=== PATIENT | male | born 1965 | race Caucasian/White ===

== ENCOUNTER → 2018-02-23 15:21 | Outpatient (CLI) | payer MEDICAID | END | disposition home or self-care (01) | LOC: D.MRI 15:21 | DX: M54.5 Low back pain (principal) ==

== ENCOUNTER 2019-01-16 16:02 | Emergency (ER) | payer MEDICAID ==
[2019-01-16 16:07] VITALS: BMI 20.4
[2019-01-16] MEDS ORDERED: NORVASC10 MG PO (16:09)
[2019-01-16 16:57] LABS: APTT 27.9 SECONDS (22.8-39.4); INR 1.07 (0.85-1.17); PROTIME 13.4 SECONDS (11.6-15.0)
[2019-01-16 17:00] LABS: BASOPHILS 0 % (0-2); EOSINOPHILS 0 % (0-7); HEMATOCRIT 33.2 % (42.0-54.0); HEMOGLOBIN 12.3 g/dL (13.5-17.5); IMMATURE GRANULOCYTES 0.4 % (0-5); MCH 35.5 pg (26.0-34.0); MEAN PLATELET VOLUME 8.9 fL (7.4-10.4); MONOCYTES 11.6 % (2-11); PLATELET COUNT 163 10x3/uL (130-400); RBC 3.46 10x6/uL (4.20-6.10); RDW 12.3 % (11.5-14.5); WBC 5.1 10x3/uL (4.8-10.8)
[2019-01-16 17:07] LABS: ALBUMIN 4.3 g/dL (3.4-5.0); ALKALINE PHOSPHATASE 63 U/L (46-116); ALT (SGPT) 41 U/L (10-68); BILIRUBIN - TOTAL 0.48 mg/dL (0.2-1.3); CALC OSMOLALITY 253 mosm/kg (275-300); CALCIUM 9.1 mg/dL (8.5-10.1); CARBON DIOXIDE 24.7 mmol/L (21.0-32.0); CHLORIDE - SERUM 89 mmol/L (98-107); CREATININE - SERUM 0.8 mg/dL (0.6-1.3); GLUCOSE 89 mg/dL (74-106); POTASSIUM - SERUM 4.8 mmol/L (3.5-5.1); PROTEIN - SERUM 8.1 g/dL (6.4-8.2); SODIUM 127 mmol/L (136-145); UREA NITROGEN 12 mg/dL (7-18); eGFR NON AFRICAN AMERICAN > 90 mL/min (90-120)
[2019-01-16 17:17] LABS: CKMB 4.9 U/L (0.0-3.6); CREATINE KINASE 173 UL (21-232); MAGNESIUM - SERUM 1.8 mg/dL (1.8-2.4); THYROID STIMULATING HORMONE 1.59 uIU/mL (0.36-3.74)
[2019-01-16 17:19] LABS: TROPONIN-I < 0.017 ng/mL (0.000-0.060)
[2019-01-16 18:07] VITALS: BP 150/84
== END 2019-01-16 18:08 | disposition home or self-care (01) ==
LOC: D.ER 16:02
PROVIDERS: Family Medicine
DX: E87.1 Hypo-osmolality and hyponatremia (principal)

== ENCOUNTER 2019-07-09 16:05 | Observation (INO) | payer MEDICAID ==
[~2019-07-09] VITALS: Ht 182.9 cm; Wt 72.7 kg
--- NOTE | ~2019-07-09 | HP ---
PATIENT: LATONIA ZENG MEDICAL RECORD: [id number] ACCOUNT: [id number] LOCATION:[facility] : 61 ADMISSION DATE: 07/09/19 PCP: MIA BLANCO MD HISTORY AND PHYSICAL EXAMINATION DIAGNOSES: 1. Unstable angina. 2. Family history of coronary artery disease. 3. Hypertension. 4. Hyperlipidemia. HISTORY OF PRESENT ILLNESS: This is a gentleman with no history of ischemic heart disease. He has been having chest discomfort for greater than 1 month in an escalating fashion. He now has progressed to episodes of rest pain as well associated with diaphoresis and shortness of breath. It has been in a progressive fashion. He was set up to see a cdl b driver at [facility] by his primary care physician; however, has not seen them yet. He does have a history of hypertension. He is not sure of his medications. He knows he is on a beta joy and he thinks Norvasc, despite the good blood pressure control and good heart rate control, the chest pain has deescalated. He does have a history of tobacco use for greater than 25 years as well and a family history of coronary artery disease. His angina is atypical angina, dull aching sensation. It radiates to his epigastric area as well as to his left arm. With these episodes recently, he broke out with diaphoresis along with the episodes and his overall shortness of breath has worsened. PHYSICAL EXAMINATION: CONSTITUTIONAL/GENERAL APPEARANCE: Well nourished, well developed, appears stated age. EYES: Lids and conjunctivae noninjected. No discharge. No pallor. ENT: Lips within normal limit. No cyanosis. No pallor. NECK: Carotid arteries, bilateral normal upstroke. No bruits. No thrills. No jugular venous pressure or distention. CERVICAL LYMPH NODES: Nontender. Nonenlarged. THYROID: Not enlarged. No nodules. CARDIOVASCULAR: Precordial exam, nondisplaced. No heaves or pericardial thrills. Rate and rhythm, regular. Heart sounds, normal S1, normal S2. No S3, no gallop, no rub. Systolic murmur, not heard. Diastolic murmur, not heard. RESPIRATORY: Respiratory effort, unlabored. Normal curvature. No thoracic deformity. No chest wall tenderness. Percussion, resonant. Auscultation, clear. No wheezes, no rales, no rhonchi. ABDOMEN: Soft, nondistended, nontender. No abdominal pain, no vomiting and normal appetite. MUSCULOSKELETAL: No joint tenderness, normal gait, normal tone. SKIN: Warm and dry. OVERALL IMPRESSION: Chest pain compatible with angina. He has been taking aspirin, has had a progression of the pain. We will load him with Plavix. He has taken multiple sublingual nitro and he still has pain in the Emergency Room. We will use morphine as well. Most likely has hemodynamically significant coronary artery disease. We will proceed with coronary angiography. Further care depends upon findings of angiography. TRANSINT:[id number] Voice Confirmation ID: [id number] DOCUMENT ID: [id number] HISTORY AND PHYSICAL [id number] LATONIA ZENG JEFFREY MD CC: [id number] DICTATION DATE: 07/09/19 172 TITLE ATTORNEY: 07/09/19 1737 [facility] [address] [id number]
--- NOTE | ~2019-07-09 | DS ---
PATIENT:LATONIA FAIR :61 MEDICAL RECORD: [id number] DISCHARGE SUMMARY ADMISSION DATE: 07/09/19 DISCHARGE DATE: 07/10/19 DIAGNOSES: 1. GERD. 2. Anemia. 3. Angina. 4. Coronary artery disease. 5. Hypertension. 6. Hyperlipidemia. HOSPITAL COURSE: Mr. Fair presents with anginal symptomatology; however, cardiac catheterization revealed total occlusion of the RCA with well-developed collaterals. No other significant disease. He is quite anemic and he has a history of GERD, most likely his chest pain was secondary to uncontrolled GERD. He was started on omeprazole. We will continue this with [id number]-mha-aozgntt omeprazole. Follow up with his primary care physician. TRANSINT:[id number] Voice Confirmation ID: [id number] DOCUMENT ID: [id number] YAIR DIMAS MD CC: [id number] DICTATION DATE: 07/10/19 1141 HONEY LIQUEFIER: 07/10/19 2359 DIS IN 07/10/19 [address] [place] [address]
--- NOTE | ~2019-07-09 | OP ---
PATIENT NAME: LATONIA ZENG MEDICAL RECORD: [id number] :61 LOCATION:D.M2 D.0 ADMISSION DATE:07/09/19 SURGEON: YAIR DIMAS MD DATE OF OPERATION: 07/10/2019 PROCEDURES: 1. Left heart catheterization. 2. Selective coronary angiography. 3. Left ventriculogram. INDICATION: Chest pain compatible with angina and coronary artery disease. PROCEDURE IN DETAIL: After informed consent was obtained and after a detailed description of the risks, benefits as well as alternative therapies, the patient elected to proceed with angiogram and heart catheterization. The right radial area was prepped and draped in normal sterile fashion. Right radial artery was cannulated via modified Seldinger technique with placement of 5-Nigerien sheath. All catheters exchanged through this sheath. FINDINGS: Left ventriculogram was performed in standard 30-degree HARP view, reveals good cardiac wall motion, ejection fraction 50% to 55%. SELECTIVE CORONARY ANGIOGRAPHY: 1. Left main is with no significant angiographic disease. 2. Left anterior descending has mild irregularities, but no flow-limiting stenosis. 3. The left circumflex has mild irregularities, but no flow-limiting stenosis. 4. Right coronary artery is totally occluded. This is a chronic total occlusion. Distal right coronary artery fills via well-developed [id number] collaterals. OVERALL IMPRESSION: Total occlusion of the RCA with well-developed collaterals, wide patency of the LAD and circumflex. Continue medical management of the coronary artery disease and cardiac risk factors. TRANSINT:[id number] Voice Confirmation ID: [id number] DOCUMENT ID: [id number] YAIR DIMAS MD CC: [id number] DICTATION DATE: 07/10/19 1140 CARTON LETTERING MACHINE OPERATOR: 07/10/19 1305 ADM IN [facility] [address] [place] [address]
--- NOTE | ~2019-07-09 | HEMODYNAMI ---
PATIENT:LATONIA ZENG MEDICAL RECORD: [id number] : 61 LOCATION:[facility] D.2[address] [facility]# [id number] ADMISSION DATE: 07/09/19 Generatedon:07/10/201911:38 Patient name: LATONIA ZENG Patient #: [id number] : 1965 Date of study: 07/10/2019 Page: Of Hemodynamic Procedure Report Patient Data Patient Demographics Procedure consent was obtained First Name: LATONIA Gender: Male Last Name: KARRI : 1965 [facility] Initial: ALAYNA Age: 53 year(s) Patient #: [id number] Race: SSN: [id number] Additional ID: [id number] Contact details [address]: [address] [place] [address] TRAIL State: [place] City: [place] Zip code: [address] Admission Admission Data Admission Date: 07/09/2019 Admission Time: 17:44 Arrival Date: 07/09/2019 Arrival Time: 17:44 Admit Source: Emergency Insurance Payor: Private department health insurance Room #: D.2120 [facility] #: [id number] Height (in.): 72.05 BSA: 1.94 (m2) Height (cm.): 183 BMI: 21.8 (kg/m2) Weight (lbs.): 160.94 Weight (kg.): 73 Lab Results Lab Result Date: 07/10/2019 Lab Result Time: 0:00 Biochemistry Name Units Result Min Max BUN mg/dl 13 --(--*-)-- 7 18 Creatinine mg/dl 0.8 --(-*--)-- 0.6 1.3 eGFR ml/min 90 --(*---)-- 90 120 NONAFRICAN CBC Name Units Result Min Max Hemoglobin g/dl 8.8 *-(----)-- 13.5 17.5 Procedure Procedure Types Cath Procedure Diagnostic Procedure LHC C w/Coronaries Sedation Charges Moderate Sedation up to 15 minutes Procedure Description Procedure Date Procedure Date: 07/10/2019 Procedure Start Time: 11:28 Procedure End Time: 11:37 Procedure Staff Name Function Andrew Fried MD Performing Physician Eleni Edwards RT Monitor Alison Baca RT Scrub Mira Sun RN Nurse Procedure Data Cath Procedure Fluoroscopy Diagnostic fluoroscopy Total fluoroscopy Time: 1.5 time: 1.5 min min Diagnostic fluoroscopy Total fluoroscopy dose: 373 dose: 373 mGy mGy Contrast Material Contrast Material Type Amount (ml) Isovue 300 55 Entry Location Entry Primary Successful Side Size Upsize Upsize Entry Closure Galaviz ccessful Closure Location (Fr) 1 (Fr) 2 (Fr) Remarks Device Remarks Radial Right 6 Fr Mechanical artery Short Compression Estimated blood loss: 5 ml Diagnostic catheters Device Type Used For End Catheter Placement DIAGNOSTIC [place] 110cm 5 Procedure Fr catheter ([id number]) DIAGNOSTIC AR2 MOD 5 Fr Procedure catheter ([id number]) Procedure Complications No complications Procedure Medications Medication Administration Route Dosage Oxygen etCO2 Nasal cannula 2 l/min Lidocaine 2% added to field 20 Heparin Flush Bag added to field 2 bags (1000units/500ml NS) 0.9% NaCl I.V. 100 ml/hr Radial Cocktail I.A. 1 syringe (Verapamil 2mg/Nitro 400mcg/Heparin 1500units) Versed I.V. 2 mg Fentanyl I.V. 50 mcg Versed I.V. 1 mg Fentanyl I.V. 50 mcg Hemodynamics Rest BSA: 1.94 (m2) HGB: 8.8 (g/dl) O2 Consumption: Estimated: 248.55 (ml/min) O2 Con sumption indexed: Estimated:128.12 (ml/min/m) Heart Rate: 95 (bpm) Snapshots Pre Cath Intra NCS Post Cath Vital Signs Time Heart Resp SPO2 etCO2 NIBP (mmHg) Rhythm Pain Sedation Rate (ipm) (%) (mmHg) Status Level (bpm) 11:13:25 83 19 100 0 140/90(128) NSR 0 (11) 10(A) , No pain 11:17:37 86 15 100 29.9 144/84(105) NSR 0 (11) 10(A) , No pain 11:21:49 89 14 99 32.2 121/81(102) NSR 0 (11) 10(A) , No pain 11:25:54 89 15 98 32.2 116/76(88) NSR 0 (11) 10(A) , No pain 11:30:53 89 14 97 34.4 110/90(107) NSR 0 (11) 9(A) , No pain 11:34:59 98 15 97 14.2 103/67(81) NSR 0 (11) 9(A) , No pain 11:37:19 95 14 97 32.9 108/73(81) NSR 0 (11) 10(A) , No pain Medications Time Medication Route Dose Verified Delivered Reason Notes Effectiveness by by 11:17:49 Oxygen etCO2 2 l/min Andrew Meyers used for Nasal Fariha Sun RN procedure cannula 11:17:54 Lidocaine 2% added 20ml Andrew Morlaes for local to vial Fariha Fried MD anesthetic field 11:17:59 Heparin Flush added 2 bags Andrew Morales used for Bag to Fariha Fried MD procedure (1000units/500ml field NS) 11:18:06 0.9% NaCl I.V. 100 Andrew Meyers Per ml/hr Fariha Sun RN physician 11:24:35 Versed I.V. 2 mg Andrew Meyers for sedation Fariha Sun RN 11:24:40 Fentanyl I.V. 50 mcg Andrew Meyers for sedation Fariha Sun RN 11:30:20 Radial Cocktail I.A. 1 Andrew Morales for (Verapamil syringe Fariha Fried MD vasodilation 2mg/Nitro 400mcg/Heparin 1500units) 11:30:26 Versed I.V. 1 mg Andrew Meyers for sedation Fariah Sun RN 11:30:31 Fentanyl I.V. 50 mcg Andrew Meyers for sedation Fariha Sun RN Procedure Log Time Note 10:47:58 Informed consent obtained and on chart 10:48:07 Diagnostic Cath Status : Urgent 10:49:55 Lab Result : eGFR NONAFRICAN 90 ml/min 10:49:55 Lab Result : Hemoglobin 8.8 g/dl 10:49:55 Lab Result : BUN 13 mg/dl 10:49:55 Lab Result : Creatinine 0.8 mg/dl 10:50:14 Admit Source: Emergency department 10:50:16 Arrival Date: 07/09/2019 5:44:00 PM 10:50:58 Insurance Payor : Private health insurance 10:51:14 Patient Height : 72.05 inches 10:51:21 Patient Weight : 160.94 lbs 10:51:35 Procedure Status Urgent Heart Cath (IP). 10:51:37 Alison Baca RT(R) sent for patient. Start room use. 10:51:38 Time tracking: Regular hours (M-F 7:00 - 5:00) 10:51:42 Plan of Care:Hemodynamics will remain stable., Cardiac rhythm will remain stable., Comfort level will be maintained., Respiratory function will remain adequate., Patient/ family verbilizes understanding of procedure., Procedure tolerated without complication., Recovers from procedure without complications.. 10:55:52 Risk of Mortality: 2.8 10:55:57 Risk of blood transfusion: 41.6 10:56:07 Risk of BEHZAD: 10.7 10:56:18 1) 90+ Normal kidney functon but urine findings or structural abnormalities or genetic trait point to kidney disease. 10:56:42 Maximum allowable contrast dose (3.7 X eGFR X 0.75)249 ml. 11:12:17 Warm blankets applied, and art hugger turned on for patient comfort. 11:12:18 Correct patient and procedure confirmed by team. 11:12:18 ECG and BP/O2 sat monitors applied to patient. 11:12:19 Vital chart was started 11:12:21 Baseline sample Acquired. 11:12:25 Rhythm: sinus tachycardia 11:12:26 Full Disclosure recording started 11:12:30 H&P Date Dictated: 07/10/2019 New H&P dictated by physician.. 11:12:31 Pre-procedure instructions explained to patient. 11:12:32 Pre-op teaching completed and patient verbalized understanding. 11:12:33 Family unavailable. 11:12:35 Patient NPO since Midnight. 11:12:37 Is the patient allergic to Iodine/contrast media? No. 11:12:38 Was the patient premedicated? Yes 11:12:40 Is patient on blood thinner?No 11:12:41 Patient diabetic? No. 11:12:43 Previous problem with sedation/anesthesia? No ? 11:12:45 Snore? No 11:12:46 Sleep apnea? No 11:12:47 Deviated septum? No 11:12:48 Opens mouth fully? Yes 11:12:49 Sticks out tongue? Yes 11:12:50 Airway obstruction? No ? 11:12:53 Dentures? No ? 11:12:57 Pre procedure: right dorsailis pedis pulse 2+ Normal; easily identifiable; not easily obliterated 11:12:59 Pre procedure: left dorsailis pedis pulse 2+ Normal; easily identifiable; not easily obliterated 11:13:04 IV patent on arrival in left antecubital with 0.9% NaCl at [facility]. 11:13:06 Lab results completed and on chart. 11:13:11 Right Radial & Right Groin area was prepped with chlora-prep and draped in sterile fashion 11:13:12 Alarms reviewed by R. N. 11:13:12 Sharps counted by scrub and verified by R.N. 11:17:49 Oxygen 2 l/min etCO2 Nasal cannula was administered by Mira Sun RN; used for procedure; Verbal order read back and verified. 11:17:54 Lidocaine 2% 20ml vial added to field was administered by Andrew Fried MD; for local anesthetic; Verbal order read back and verified. 11:17:59 Heparin Flush Bag (1000units/500ml NS) 2 bags added to field was administered by Andrew Fried MD; used for procedure; Verbal order read back and verified. 11:18:06 0.9% NaCl 100 ml/hr I.V. was administered by Mira Sun RN; Per physician; Verbal order read back and verified. 11:23:21 Physician arrived 11:23:22 --------ALL STOP TIME OUT------ 11:23:22 Final Timeout: patient, procedure, and site verified with staff and physician. All members of the team are in agreement. 11:23:24 Right Radial & Right Groin site verified by team. 11:23:28 Fire Safety Assessment: A--An alcohol-based skin anteseptic being used preoperatively., C--Open oxygen or nitrous oxide is being used., D--An ESU, laser, or fiber-optic light is being used. 11:23:34 Physical assessment completed. ASA score P 3 - A patient with severe systemic disease as per Andrew Fried MD. 11:23:38 Sedation plan: IV Moderate Sedation Medication:Versed, Fentanyl 11:24:35 Versed 2 mg I.V. was administered by Mira Sun RN; for sedation; Verbal order read back and verified. 11:24:40 Fentanyl 50 mcg I.V. was administered by Mira Sun RN; for sedation; Verbal order read back and verified. 11:24:46 Zero performed for pressure channel P1 11:25:07 Use device set Radial Dx or PCI 11:25:08 ACIST Syringe (96924) opened to sterile field. 11:25:09 Medline Cath Pack ([id number]) opened to sterile field. 11:25:10 Bag Decanter (2002) opened to sterile field. 11:25:10 ACIST Hand Control (91986) opened to sterile field. 11:25:11 ACIST Manifold (34735) opened to sterile field. 11:25:12 Tegaderm 4 x 4 (1626W) opened to sterile field. 11:25:13 MBrace Wrist Support ([id number]) opened to sterile field. 11:25:16 EMERALD Guide Wire (998-606) opened to sterile field. 11:25:17 SHEATH 6FR RAIN (8169340) opened to sterile field. 11:28:17 Procedure started. 11:28:59 Local anesthetic to right radial artery with Lidocaine 2% by Andrew Fried MD.INITIAL ACCESS ONLY 11:29:59 A 6 Fr Short sheath was inserted into the Right Radial artery 11:30:10 j wire advanced. 11:30:19 A DIAGNOSTIC [place] 110cm 5 Fr catheter (309866) was advanced over the wire and used for Procedure. 11:30:20 Radial Cocktail (Verapamil 2mg/Nitro 400mcg/Heparin 1500units) 1 syringe I.A. was administered by Andrew Fried MD; for vasodilation; Verbal order read back and verified. 11:30:26 Versed 1 mg I.V. was administered by Mira Sun RN; for sedation; Verbal order read back and verified. 11:30:29 LV angiography performed. 11:30:31 Fentanyl 50 mcg I.V. was administered by Mira Sun RN; for sedation; Verbal order read back and verified. 11:31:18 EF : 60 % 11:31:23 LCA angiography performed. 11:34:10 A DIAGNOSTIC AR2 MOD 5 Fr catheter (004840E) was advanced over the wire and used for Procedure. 11:34:41 RCA angiography performed. 11:34:42 Catheter removed. 11:34:47 ZEPHYR REGULAR TR BAND (880540) opened to sterile field. 11:35:08 Sheath removed intact; hemostasis achieved with Mechanical Compression to the Right Radial artery. 11:35:11 Procedure ended.(Physican Out) 11:35:21 Fluoroscopy time 01.50 minutes. 11:35:25 Fluoroscopy dose: 373 mGy 11:35:25 Flurop Dose total: 373 11:35:30 Dose Area Product 41707 mGy/cm. 11:35:36 Contrast amount:Isovue 300 55ml. 11:35:38 Maximum allowable dose exceeded? No. 11:35:39 Sharps counted by scrub and verified by R.N. 11:35:41 [place] band inflated with 10cc of air. 11:35:42 Insertion/operative site no bleeding no hematoma. 11:35:51 Post-procedure physical assessment completed. ASA score P 3 - A patient with severe systemic disease as per Andrew Fried MD. 11:35:54 Post procedure rhythm: unchanged. 11:35:58 Estimated blood loss: 5 ml 11:36:00 Post procedure instruction explained to patient.Patient verbalizes understanding. 11:36:18 Procedure type changed to Cath procedure, Diagnostic procedure, LHC, [facility] w/Coronaries, Sedation Charges, Moderate Sedation up to 15 minutes 11:36:19 Procedure and supply charges have been captured, reviewed, submitted and are correct. 11:37:04 Procedure and supply charges have been captured, reviewed, submitted and are correct. 11:37:16 Procedure Complication : No complications 11:37:19 Vital chart was stopped 11:37:27 [facility] Findings: MVD- manage w/ optimal medication therapy 11:37:31 Operative report dictated upon procedure completion. 11:37:31 See physician's report for complete and final results. 11:37:33 Report given to [facility]. 11:37:38 Patient transfered to [facility] with Bed. 11:37:40 Procedure ended. 11:37:40 Full Disclosure recording stopped Device Usage Item Name Manufacture Quantity Catalog Hospital Part Current Minima l Lot# / Number Charge Number Stock Stock Serial# Code ACIST Acist 1 41723 036563 071396 316708 20 Wantworthy73227) Systems Inc Medline Medline 1 [id number] 11636 187882 5 Cath Pack ([id number]) Bag Microtek 1 2001S 888093 84876 468793 5 Decanter Medical Inc. (2001S) ACIST Hand Acist 1 63620 770828 410619 384350 5 Control Medical (71793) Systems Inc ACIST Acist 1 05404 391164 730837 963209 5 Manifold Medical (88414) Systems Inc Tegaderm 4 3M 1 1626W 533752 911995 940391 5 x 4 (1626W) MBrace Advanced 1 140-0250-00 689216 60859 612931 5 Wrist Vascular Support Dynamics ([id number]) EMERALD Cardinal 1 502455 930188 472887 722165 5 Guide Wire Health (502455) SHEATH 6FR Cardinal 1 9722715 918274 5711576 823244 5 [facility] Health (9249840) DIAGNOSTIC Terumo 1 40-9203 858316 543581 325799 5 [place] 110cm 5 Fr catheter (988291) DIAGNOSTIC Cardinal 1 [id number] 484177 935512 088248 20 AR2 MOD 5 Health Fr catheter (340007W) ZEPHYR Cardinal 1 415803 999137 7581721 631465 5 REGULAR TR Health BAND (109318) Signature Audit [place] Stage Time Signature Unsigned Intra-Procedure 07/10/2019 Mira Sun RN 11:37:04 AM Intra-Procedure 07/10/2019 Eleni Edwards 11:37:58 AM RT(R); Andrew Fried MD Signatures Performing Physician : Signature : Andrew Fried MD Date : Time : Monitor : Eleni Edwards Signature : RT Date : Time : Nurse : Mira Sun RN Signature : Date : Time : [address] [place] [address]
[~2019-07-09 16:05] MED LIST: NORVASC10 MG PO
[2019-07-09] MEDS ORDERED: [UNRECOGNIZED DRUG - REMARK] (16:10)
[2019-07-09 16:33] LABS: BASOPHILS 0.2 % (0-2); EOSINOPHILS 0.3 % (0-7); HEMATOCRIT 26.1 % (42.0-54.0); HEMOGLOBIN 8.8 g/dL (13.5-17.5); IMMATURE GRANULOCYTES 0.4 % (0-5); LYMPHOCYTES 10.1 % (15-50); MCH 36.7 pg (26.0-34.0); MCHC 33.7 g/dL (31.0-37.0); MCV 108.8 fL (80.0-100.0); MEAN PLATELET VOLUME 8.5 fL (7.4-10.4); MONOCYTES 12.7 % (2-11); NEUTROPHILS 76.3 % (40-80); RDW 14.2 % (11.5-14.5); WBC 10.3 10x3/uL (4.8-10.8)
[2019-07-09 16:34] LABS: PLATELET COUNT 389 10x3/uL (130-400)
--- NOTE | 2019-07-09 16:36 | NUR ---
PT RATED DISCOMFORT 10/10 PRIOR TO FISRT SL NITRO, PT RATES CHEST DISCOMFORT 9/10 PRIOR TO SECOND PRN SL NITRO. TREATING PROVIDER AWARE. WILL CONTINUE TO MONITOR.
--- NOTE | 2019-07-09 16:40 | NUR ---
HAND OFF REPORT GIVEN TO PORSHA MENDOZA.
[2019-07-09 16:50] VITALS: BP 127/74
--- NOTE | 2019-07-09 16:50 | NUR ---
ASSUMED CARE OF PATIENT, RESTING ON STRETCHER MEDICATIONS GIVEN PER ORDER, FAMILY AT BEDSIDE. VITAL SIGNS STABLE.
--- NOTE | 2019-07-09 17:03 | NUR ---
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
[2019-07-09 17:13] LABS: CALC OSMOLALITY 263 mosm/kg (275-300); CARBON DIOXIDE 24.3 mmol/L (21.0-32.0); CHLORIDE - SERUM 96 mmol/L (98-107); CREATININE - SERUM 0.8 mg/dL (0.6-1.3); GLUCOSE 116 mg/dL (74-106); POTASSIUM - SERUM 4.5 mmol/L (3.5-5.1); SODIUM 131 mmol/L (136-145); UREA NITROGEN 13 mg/dL (7-18); eGFR NON AFRICAN AMERICAN > 90 mL/min (90-120)
[2019-07-09 17:28] VITALS: BP 142/74
[2019-07-09 17:28] LABS: ALBUMIN 3.6 g/dL (3.4-5.0); ALKALINE PHOSPHATASE 63 U/L (46-116); ALT (SGPT) 22 U/L (10-68); BILIRUBIN - TOTAL 0.24 mg/dL (0.2-1.3); CKMB 3.1 U/L (0.0-3.6); CREATINE KINASE 83 UL (21-232); LIPASE 142 U/L (73-393); MAGNESIUM - SERUM 1.6 mg/dL (1.8-2.4); PROTEIN - SERUM 7.5 g/dL (6.4-8.2); TROPONIN-I < 0.017 ng/mL (0.000-0.060)
--- NOTE | 2019-07-09 17:36 | NUR ---
PT TO CT FOR CTA VIA TECH PER STRETCHER.
--- NOTE | 2019-07-09 17:38 | NUR ---
PATIENT WAS GIVEN 325 MG ASA PO
--- NOTE | 2019-07-09 17:49 | NUR ---
BACK FROM CT
--- NOTE | 2019-07-09 18:19 | NUR ---
TRANSFER FROM ER BY W/C. SOSAINTED TO ROOM. CALL LIGHT IN REACH. WILL CONT. PLAN OF CARE.
--- NOTE | 2019-07-09 19:36 | NUR ---
[id number] BEDSIDE REPORT. PATIENT IS ALERT AND ORIENTED, RESTING COMFORTABLY IN BED. PATIENT JUST FINISHED EATING SUPPER TRAY. RESPIRATIONS ARE EVEN AND UNLABORED. NO S/S OF DISTRESS. NO C/O PAIN. CALL LIGHT WITHIN REACH. WILL CPOC.
[2019-07-09 20:00] VITALS: BP 129/66
[2019-07-09 22:06] VITALS: BP 129/66; Ht 182.9 cm; Wt 72.7 kg
[2019-07-10] VITALS: BP 128/70
[2019-07-10 04:00] VITALS: BP 118/58
--- NOTE | 2019-07-10 07:10 | NUR ---
ASSESSMENT DONE. DENIES NEEDS
[2019-07-10 08:13] VITALS: BP 126/66
--- NOTE | 2019-07-10 09:59 | NUR ---
I have reviewed this patient and I concur with the Shift Assessment completed by the Licensed Practical Nurse today this shift.
[2019-07-10 11:13] VITALS: BP 142/84
[2019-07-10] MEDS ORDERED: METOPROLOL TART50 MG (12:48)
[2019-07-10] MEDS ORDERED: LISINOPRIL20 MG PO (12:49)
[2019-07-10] MEDS ORDERED: NORVASC5 MG PO (12:49)
--- NOTE | 2019-07-10 12:50 | NUR ---
PER PATIENT PERMISSION I CALLED [facility] FOR HOME DOSES OF B/P MEDS. I TALKED TO ERASMO WHO GAVE ME THE DOSE AND NAMES OF MEDS. THIS IS ADDED TO HIS DISCHARGE MED LIST.
[2019-07-10 15:06] VITALS: BP 130/73
--- NOTE | 2019-07-10 15:36 | NUR ---
DC GIVEN TO PT
--- NOTE | 2019-07-10 15:46 | NUR ---
DC HOME PER PERSONAL CAR
--- NOTE | 2019-07-11 07:22 | MORECARE ---
CASE MANAGEMENT DISCHARGE SUMMARY PATIENT: LATONIA ZENG UNIT: [id number] ADM DATE: 07/09/19 AGE: 53 : 61 SEX: M ROOM/BED: D.2120 AUTHOR: YOJANA BARBER PHYSICIAN: REFERRING PHYSICIAN: YAIR DIMAS MD DATE OF SERVICE: 07/11/19 Discharge Plan Patient Name: LATON[facility] ZENG [facility] [facility] 1965 Planned Disposition: Home Anticipated Discharge Date: 07/10/19 Discharge Date: 07/10/2019 Expected LOS: 1 Initial Reviewer: [id number] Initial Review Date: 07/11/2019 Generated: 07/11/19 8:21 am Patient Name: LATONIA ZENG Page 12896 at 0722 All edits/amendments must be made on the electronic document DICTATION DATE: 07/11/19720 CASHIER SUPERVISOR: REHAN 07/11/19720 RPT#: [id number] DC DATE:07/10/19 STATUS: DIS IN [facility] [address] [place] [address] END OF REPORT
== END 2019-07-10 15:46 | disposition home or self-care (01) ==
LOC: D.ER 16:05 → D.M2 17:44 → OBSVTIME 21:19 → D.M2 07-10 15:46
PROVIDERS: Family Medicine; ADMIT Internal Medicine Interventional Cardiology; ATTEND Internal Medicine Interventional Cardiology
DX: I25.119 Atherosclerotic heart disease of native coronary artery with unspecified angina pectoris (principal); I10 Essential (primary) hypertension; E78.5 Hyperlipidemia, unspecified; D64.9 Anemia, unspecified; K21.9 Gastro-esophageal reflux disease without esophagitis

== ENCOUNTER → 2020-02-15 12:38 | Outpatient (CLI) | payer MEDICAID ==
[2019-07-09 22:06] VITALS: BMI 21.7
[~2020-02-15 12:38] MED LIST changes: +LISINOPRIL20 MG PO; +METOPROLOL TART50 MG; +NORVASC5 MG PO; +[UNRECOGNIZED DRUG - REMARK]
== END | disposition home or self-care (01) ==
LOC: D.US 12:38
PROVIDERS: ATTEND Internal Medicine Cardiovascular Disease
DX: R55 Syncope and collapse (principal)

== ENCOUNTER → 2020-02-21 09:57 | Outpatient (CLI) | payer MEDICAID ==
[2019-07-09 22:06] VITALS: BMI 21.7
== END | disposition home or self-care (01) ==
LOC: D.HCCARDIO 09:57
PROVIDERS: ATTEND Internal Medicine Cardiovascular Disease
DX: I25.10 Atherosclerotic heart disease of native coronary artery without angina pectoris (principal)

== ENCOUNTER 2020-04-25 13:15 | Emergency (ER) | payer MEDICAID ==
[~2020-04-25] VITALS: Ht 182.9 cm; Wt 68.2 kg
[2020-04-25 13:44] VITALS: Ht 182.9 cm; Wt 68.2 kg
[2020-04-25] MEDS ORDERED: THERMOTABS 1 GM1 GM (13:50)
[2020-04-25 14:24] LABS: BASOPHILS 0.2 % (0-2); EOSINOPHILS 0.2 % (0-7); HEMATOCRIT 38.3 % (42.0-54.0); HEMOGLOBIN 13.2 g/dL (13.5-17.5); IMMATURE GRANULOCYTES 0.2 % (0-5); LYMPHOCYTES 12.7 % (15-50); MCH 33.5 pg (26.0-34.0); MCHC 34.5 g/dL (31.0-37.0); MCV 97.2 fL (80.0-100.0); MEAN PLATELET VOLUME 8.7 fL (7.4-10.4); MONOCYTES 11.9 % (2-11); NEUTROPHILS 74.8 % (40-80); RBC 3.94 10x6/uL (4.20-6.10); RDW 14.4 % (11.5-14.5); WBC 5.2 10x3/uL (4.8-10.8)
[2020-04-25 14:26] LABS: PLATELET COUNT 160 10x3/uL (130-400)
[2020-04-25 14:33] LABS: CALC OSMOLALITY 254 mosm/kg (275-300); CALCIUM 9.4 mg/dL (8.5-10.1); CARBON DIOXIDE 26.1 mmol/L (21.0-32.0); CHLORIDE - SERUM 92 mmol/L (98-107); GLUCOSE 91 mg/dL (74-106); POTASSIUM - SERUM 4.4 mmol/L (3.5-5.1); SODIUM 128 mmol/L (136-145); UREA NITROGEN 7 mg/dL (7-18); eGFR NON AFRICAN AMERICAN 82 mL/min (90-120)
[2020-04-25 14:40] LABS: ALBUMIN 4.4 g/dL (3.4-5.0); ALKALINE PHOSPHATASE 63 U/L (30-120); ALT (SGPT) 35 U/L (10-68); BILIRUBIN - TOTAL 0.64 mg/dL (0.2-1.3); PROTEIN - SERUM 8.3 g/dL (6.4-8.2)
[2020-04-25] MEDS ORDERED: LIORESAL 10 MG10 MG PO (16:21)
[2020-04-25 17:11] VITALS: BP 167/82
== END 2020-04-25 17:14 | disposition home or self-care (01) ==
LOC: D.ER 13:15
DX: R51 Headache (principal); D64.9 Anemia, unspecified; R74.0 Nonspecific elevation of levels of transaminase and lactic acid dehydrogenase [LDH]; E87.8 Other disorders of electrolyte and fluid balance, not elsewhere classified; E87.1 Hypo-osmolality and hyponatremia; I10 Essential (primary) hypertension

== ENCOUNTER → 2020-11-15 11:34 | Outpatient (CLI) | payer BC ==
[2020-04-25 13:44] VITALS: BMI 20.4
[~2020-11-15 11:34] MED LIST changes: +LIORESAL 10 MG10 MG PO; +THERMOTABS 1 GM1 GM
== END | disposition home or self-care (01) ==
LOC: D.LABREF 11:34
PROVIDERS: ATTEND Internal Medicine Pulmonary Disease
DX: R06.09 Other forms of dyspnea (principal); Z11.52 Encounter for screening for COVID-19

== ENCOUNTER → 2020-11-20 08:12 | Outpatient (CLI) | payer MEDICAID ==
[2020-04-25 13:44] VITALS: BMI 20.4
== END | disposition home or self-care (01) ==
LOC: D.RT 09-03 08:30 → D.RAD 09-03 09:45 → D.RT 10-09 09:00
PROVIDERS: ATTEND Internal Medicine Pulmonary Disease
DX: R06.09 Other forms of dyspnea (principal); Z11.52 Encounter for screening for COVID-19